=== PATIENT | female | born 1945 | race Two or more races ===

== ENCOUNTER 2021-02-19 14:43 | Inpatient (IN) | payer MEDICARE, OTHER ==
[~2021-02-19] VITALS: Ht 162.6 cm; Wt 113.0 kg
[2021-02-19] MEDS ORDERED: MORPHINE SULF INJ 2 MG/ML SYRINGE 1ML IV PRN (15:30)
[2021-02-19] MEDS ORDERED: FUROSEMIDE 20 MG/2 ML VIAL IV ONE (15:30)
[2021-02-19] MEDS ORDERED: NITROGLYCERIN 0.4 MG SL TAB SL PRN (15:30)
[2021-02-19 15:56] LABS: Basophils # (auto) 0.1 10 ^3/uL (0-0.2); Basophils % (auto) 1.3 % (0.0-2.0); Eosinophils # (auto) 0.1 10 ^3/uL (0-0.8); Eosinophils % (auto) 2.1 % (0.0-7.0); Hematocrit 41.4 % (36.0-46.0); Hemoglobin 13.9 g/dL (12.2-16.2); Lymphocytes # (auto) 2.2 10 ^3/uL (0.4-5.4); Lymphocytes % (auto) 41.7 % (10.0-50.0); Mean Corpuscular Hemoglobin 29.9 pg (28.0-32.0); Mean Corpuscular Hgb Conc. 33.6 g/dL (32.0-36.0); Mean Corpuscular Volume 89.1 fL (80.0-100.0); Monocytes # (auto) 0.5 10 ^3/uL (0-1.3); Monocytes % (auto) 9.8 % (0.0-12.0); Neutrophils # (auto) 2.3 10 ^3/uL (1.6-8.6); Neutrophils % (auto) 45.1 % (37.0-80.0); Nucleated Red Blood Cells % 0.1 %; Platelet Count (auto) 232 10^3/uL (140-450); Red Blood Cells 4.65 10^6/uL (4.0-5.20); Red Cell Distribution Width 13.6 % (11.8-14.3); White Blood Cell 5.2 10^3/uL (4.4-10.8)
[2021-02-19 16:12] VITALS: BP 142/79
[2021-02-19 16:14] LABS: Alanine Aminotransferase 33 U/L (13-56); Albumin 3.2 g/dL (3.4-5.0); Anion Gap 5 (5-15); Blood Urea Nitrogen 21 mg/dL (7-18); Carbon Dioxide 32 mmol/L (21-32); Chloride 103 mmol/L (98-107); Glucose 172 mg/dL (74-106); Magnesium 1.9 mg/dL (1.6-2.6); Potassium 4.1 mmol/L (3.5-5.1); Sodium 140 mmol/L (136-145)
[2021-02-19 16:19] LABS: Alkaline Phosphatase 77 U/L (45-117); Aspartate Aminotransferase 27 U/L (15-37); BUN/Creatinine Ratio 24.4; Bilirubin, Total 0.3 mg/dL (0.2-1.0); Calcium 9.2 mg/dL (8.5-10.1); GFR African American 83 mL/min; GFR Non-African American 68 mL/min; Total Protein 7.4 g/dL (6.4-8.2)
[2021-02-19] MEDS ORDERED: HYDR1TAB97 PO (18:41)
[2021-02-19] MEDS ORDERED: METF-370 PO (18:41)
[2021-02-19] MEDS ORDERED: FOLI1TAB6 PO (18:41)
[2021-02-19] MEDS ORDERED: ASCO500C46 PO (18:41)
[2021-02-19] MEDS ORDERED: GLIP5TAB5 PO (18:41)
[2021-02-19] MEDS ORDERED: LOSA-39 PO (18:41)
[2021-02-19] MEDS ORDERED: ASPI-543 PO (18:41)
[2021-02-19] MEDS ORDERED: ZINC220C8 PO (18:41)
[2021-02-19] MEDS ORDERED: BENA5TAB5 PO (18:41)
[2021-02-19] MEDS ORDERED: [UNRECOGNIZED DRUG - CODE] PO (18:41)
[2021-02-19] MEDS ORDERED: [UNRECOGNIZED DRUG - CODE] PO (18:41)
[2021-02-19] MEDS ORDERED: LIDO5DIS21 TOP (18:49)
[2021-02-19 22:00] VITALS: BP 130/68
[2021-02-19] MEDS ORDERED: DOCUSATE SOD 100 MG CAP PO PRN (22:15)
[2021-02-19] MEDS: HYDROcodone-ACET 5/325MG TAB PO PRN (23:20)
[2021-02-20 05:00] VITALS: BP 124/61
[2021-02-20 05:51] LABS: Cholesterol 169 mg/dL (< 200); HDL Cholesterol 59 mg/dL (40-59); LDL Cholesterol 88 mg/dL (< 100); Triglycerides 150 mg/dL (< 150)
[2021-02-20] MEDS: INSULIN LISPRO (HUMAN) 100 UNITS/ML ML SC SCH ×4 (06:21→21:37)
[2021-02-20] MEDS: INSULIN LANTUS (GLARGINE) 1 /0.01ml (100units/ml) SC SCH (06:23)
[2021-02-20] MEDS: TORSEMIDE 20 MG TAB PO SCH ×2 (08:10→15:10)
[2021-02-20] MEDS: metFORMIN HYDROCHLORIDE 850 MG TAB PO SCH ×2 (08:11→17:51)
[2021-02-20 09:06] VITALS: BP 114/62
[2021-02-20] MEDS ORDERED: metFORMIN HYDROCHLORIDE 500 MG TAB PO SCH (10:00)
[2021-02-20] MEDS ORDERED: ACETAMINOPHEN 500 MG TAB PO PRN (10:00)
[2021-02-20] MEDS: LIDOCAINE 5% TOPICAL PATCH TOP SCH (11:07)
[2021-02-20] MEDS: ASPirin-EC 81 mg tab PO SCH (11:07)
[2021-02-20] MEDS: FOLIC ACID 1 MG TAB PO SCH ×2 (11:07→21:30)
[2021-02-20] MEDS: VALSARTAN 80 MG TAB PO SCH (11:07)
[2021-02-20] MEDS: ACCU-CHEK COMFORT CURVE STRIP VI SCH ×3 (11:36→21:31)
[2021-02-20] MEDS: HYDROcodone-ACET 5/325MG TAB PO PRN ×3 (12:01→19:57)
[2021-02-20 13:00] VITALS: BP 128/59
[2021-02-20 16:20] VITALS: BP 122/55
[2021-02-20 21:29] VITALS: BP 117/45
[2021-02-21] VITALS (8 sets, daily range): BP systolic 88–127; BP diastolic 45–68
[2021-02-21] MEDS: KETOROLAC TROMETH 30 MG/ML 1ML VIAL IV PRN ×3 (01:33→18:42)
[2021-02-21] MEDS: INSULIN LISPRO (HUMAN) 100 UNITS/ML ML SC SCH ×4 (05:48→22:04)
[2021-02-21] MEDS: INSULIN LANTUS (GLARGINE) 1 /0.01ml (100units/ml) SC SCH (05:53)
[2021-02-21] MEDS: ACCU-CHEK COMFORT CURVE STRIP VI SCH ×4 (05:59→21:57)
[2021-02-21] MEDS: metFORMIN HYDROCHLORIDE 850 MG TAB PO SCH ×2 (11:01→18:42)
[2021-02-21] MEDS: TORSEMIDE 20 MG TAB PO SCH ×2 (11:01→16:04)
[2021-02-21] MEDS: ASPirin-EC 81 mg tab PO SCH (11:02)
[2021-02-21] MEDS: LIDOCAINE 5% TOPICAL PATCH TOP SCH (11:02)
[2021-02-21] MEDS: FOLIC ACID 1 MG TAB PO SCH ×2 (11:02→21:57)
[2021-02-21] MEDS: VALSARTAN 80 MG TAB PO SCH (11:16)
[2021-02-21 15:02] LABS: Potassium 4.2 mmol/L (3.5-5.1)
[2021-02-21 15:06] LABS: BUN/Creatinine Ratio 21.9
[2021-02-21] MEDS: SOD CHL 0.45% WITH 20MEQ KCL 1,000 ML IV SCH (16:03)
[2021-02-22 05:00] VITALS: BP 104/44
[2021-02-22] MEDS: ACCU-CHEK COMFORT CURVE STRIP VI SCH ×4 (06:23→21:36)
[2021-02-22] MEDS: INSULIN LISPRO (HUMAN) 100 UNITS/ML ML SC SCH ×4 (06:24→21:47)
[2021-02-22] MEDS: INSULIN LANTUS (GLARGINE) 1 /0.01ml (100units/ml) SC SCH (06:29)
[2021-02-22] MEDS: TORSEMIDE 20 MG TAB PO SCH ×2 (08:00→15:44)
[2021-02-22 09:00] VITALS: BP 114/64
[2021-02-22] MEDS: SOD CHL 0.45% WITH 20MEQ KCL 1,000 ML IV SCH ×3 (09:45→13:50)
[2021-02-22] MEDS: VALSARTAN 80 MG TAB PO SCH (10:00)
[2021-02-22] MEDS: FOLIC ACID 1 MG TAB PO SCH ×2 (10:16→21:36)
[2021-02-22] MEDS: metFORMIN HYDROCHLORIDE 850 MG TAB PO SCH ×2 (10:16→17:49)
[2021-02-22] MEDS: KETOROLAC TROMETH 30 MG/ML 1ML VIAL IV PRN ×2 (10:17→17:50)
[2021-02-22] MEDS: LIDOCAINE 5% TOPICAL PATCH TOP SCH (10:17)
[2021-02-22] MEDS: ASPirin-EC 81 mg tab PO SCH (10:17)
[2021-02-22 10:23] LABS: Anion Gap 8 (5-15); Blood Urea Nitrogen 41 mg/dL (7-18); Calcium 8.8 mg/dL (8.5-10.1); Carbon Dioxide 32 mmol/L (21-32); Chloride 96 mmol/L (98-107); Glucose 229 mg/dL (74-106); Potassium 3.9 mmol/L (3.5-5.1); Sodium 136 mmol/L (136-145)
[2021-02-22 10:29] LABS: BUN/Creatinine Ratio 28.9; GFR African American 46 mL/min; GFR Non-African American 38 mL/min
[2021-02-22 12:51] VITALS: BP 117/50
[2021-02-22] MEDS ORDERED: IOHEXOL 350 MG/ML 100ML IJ ONE (14:29)
[2021-02-22 17:00] VITALS: BP 144/48
[2021-02-22] MEDS: ATORVASTATIN 20 MG TAB PO SCH (21:36)
[2021-02-22 22:00] VITALS: BP 108/52
[2021-02-23] MEDS: HYDROcodone-ACET 5/325MG TAB PO PRN ×2 (01:58→14:10)
[2021-02-23] MEDS: SOD CHL 0.45% WITH 20MEQ KCL 1,000 ML IV SCH ×2 (02:15→06:10)
[2021-02-23 05:00] VITALS: BP 129/75
[2021-02-23] MEDS: INSULIN LISPRO (HUMAN) 100 UNITS/ML ML SC SCH ×4 (06:07→22:27)
[2021-02-23] MEDS: ACCU-CHEK COMFORT CURVE STRIP VI SCH ×4 (06:07→22:20)
[2021-02-23] MEDS: INSULIN LANTUS (GLARGINE) 1 /0.01ml (100units/ml) SC SCH (06:24)
[2021-02-23] MEDS: metFORMIN HYDROCHLORIDE 850 MG TAB PO SCH ×2 (08:00→17:48)
[2021-02-23] MEDS: TORSEMIDE 20 MG TAB PO SCH ×2 (08:00→14:00)
[2021-02-23 09:00] VITALS: BP 101/60
[2021-02-23 09:12] LABS: Calcium 8.6 mg/dL (8.5-10.1); Potassium 4.4 mmol/L (3.5-5.1)
[2021-02-23 09:15] LABS: BUN/Creatinine Ratio 39.6
[2021-02-23] MEDS: VALSARTAN 80 MG TAB PO SCH (10:00)
[2021-02-23] MEDS: FOLIC ACID 1 MG TAB PO SCH ×2 (10:04→22:16)
[2021-02-23] MEDS: ASPirin-EC 81 mg tab PO SCH (10:05)
[2021-02-23] MEDS: LIDOCAINE 5% TOPICAL PATCH TOP SCH (10:05)
[2021-02-23] MEDS: ENOXAPARIN SOD 40 MG/0.4 ML SYRINGE SC SCH (10:05)
[2021-02-23] MEDS: METOPROLOL SUCCINATE XL 50 MG TAB PO SCH (10:05)
[2021-02-23 13:00] VITALS: BP 138/64
[2021-02-23 17:00] VITALS: BP 74/64
[2021-02-23 21:40] VITALS: BP 115/55
[2021-02-23] MEDS: ATORVASTATIN 20 MG TAB PO SCH (22:16)
[2021-02-23] MEDS ORDERED: SOD CHL 0.45% WITH 20MEQ KCL 1,000 ML IV SCH (22:30)
[2021-02-23 22:36] LABS: BUN/Creatinine Ratio 32.2; Calcium 8.8 mg/dL (8.5-10.1); Potassium 4.2 mmol/L (3.5-5.1)
[2021-02-24 05:22] VITALS: BP 115/50
[2021-02-24] MEDS: INSULIN LANTUS (GLARGINE) 1 /0.01ml (100units/ml) SC SCH (06:19)
[2021-02-24] MEDS: ACCU-CHEK COMFORT CURVE STRIP VI SCH ×2 (06:19→11:30)
[2021-02-24] MEDS: INSULIN LISPRO (HUMAN) 100 UNITS/ML ML SC SCH ×2 (06:19→11:30)
[2021-02-24] MEDS: TORSEMIDE 20 MG TAB PO SCH ×2 (08:00→14:00)
[2021-02-24] MEDS: metFORMIN HYDROCHLORIDE 850 MG TAB PO SCH (08:00)
[2021-02-24] MEDS: ENOXAPARIN SOD 40 MG/0.4 ML SYRINGE SC SCH (10:00)
[2021-02-24] MEDS: VALSARTAN 80 MG TAB PO SCH (10:00)
[2021-02-24] MEDS: FOLIC ACID 1 MG TAB PO SCH (10:00)
[2021-02-24] MEDS: ASPirin-EC 81 mg tab PO SCH (10:00)
[2021-02-24] MEDS: METOPROLOL SUCCINATE XL 50 MG TAB PO SCH (10:00)
[2021-02-24] MEDS: LIDOCAINE 5% TOPICAL PATCH TOP SCH (10:00)
[2021-02-24 13:13] VITALS: BP 106/58
== END 2021-02-24 15:27 | disposition home or self-care (01) | DRG 291 ==
LOC: TELE-WESTW 14:43
PROVIDERS: ADMIT Specialist; ATTEND Specialist
DX: I13.0 Hypertensive heart and chronic kidney disease with heart failure and stage 1 through stage 4 chronic kidney disease, or unspecified chronic kidney disease (principal); J96.01 Acute respiratory failure with hypoxia; J98.11 Atelectasis; Z68.41 Body mass index [BMI] 40.0-44.9, adult; E11.22 Type 2 diabetes mellitus with diabetic chronic kidney disease; C50.919 Malignant neoplasm of unspecified site of unspecified female breast; E11.40 Type 2 diabetes mellitus with diabetic neuropathy, unspecified; E66.09 Other obesity due to excess calories; I25.10 Atherosclerotic heart disease of native coronary artery without angina pectoris; I50.9 Heart failure, unspecified; J44.9 Chronic obstructive pulmonary disease, unspecified; N18.9 Chronic kidney disease, unspecified; E66.01 Morbid (severe) obesity due to excess calories; E78.5 Hyperlipidemia, unspecified; Z20.822 Contact with and (suspected) exposure to COVID-19; Z82.3 Family history of stroke; Z82.49 Family history of ischemic heart disease and other diseases of the circulatory system; Z85.3 Personal history of malignant neoplasm of breast
CPT/HCPCS: 36415; 71045; 71275; 80048; 80053; 80061; 82962; 83036; 83735; 83880; 84484; 85025; 87426; 93005; 93306; 93970; G0378; J1815; J1885